=== PATIENT | female | born 1990 | race Caucasian/White ===

== ENCOUNTER 2024-06-29 17:42 | Emergency (ER) | payer MEDICAID ==
[~2024-06-29] VITALS: Ht 162.6 cm; Wt 120.7 kg
[2024-06-29 18:22] VITALS: BP 129/86; PULSE 93; RESP 18; O2SAT 97
[2024-06-29] MEDS ORDERED: OLAN5TAB2 PO (18:52)
[2024-06-29] MEDS ORDERED: HYDR-4924 PO (18:52)
[2024-06-29] MEDS ORDERED: PRAZ5CAP25 PO (18:52)
[2024-06-29] MEDS ORDERED: ARIP5TAB11 PO (18:52)
[2024-06-29] MEDS ORDERED: LAMO25TA2 PO (18:52)
== END 2024-06-29 19:59 | disposition home or self-care (01) ==
LOC: ER 17:42
DX: F41.9 Anxiety disorder, unspecified (principal); F32.A Depression, unspecified; Z76.0 Encounter for issue of repeat prescription